=== PATIENT | male | born 1965 | race African-American/Black ===

== ENCOUNTER 2020-06-28 22:47 | Emergency (ER) | payer OTHER ==
[~2020-06-28] VITALS: Ht 180.3 cm; Wt 77.6 kg
[~2020-06-28 22:47] MED LIST: DIVA250T4 PO; GLYB1.253 PO; METF-440 PO; OLAN10TA3 PO; SERT25TA PO; SIMV10TA98 PO
--- NOTE | 2020-06-28 23:00 | NUR ---
PT CAME TO THE ED C/O HAVING SERIOUS MENTAL BREAKDOWN. PT STATES " I WANT TO GET ADMITTED AT A PSYCHIATRIC HOSPITAL. PT DENIES SI/HI. PT CHANGED INTO GOWN, BELONGINGS PLACED TO LOCKER, AND SAFETY PRECAUTIONS IMPLEMENTED. SITTER AT BEDSIDE FOR CONSTANT OBSERVATION
--- NOTE | 2020-06-28 23:14 | NUR ---
URINE COLLECTED AND SENT TO LAB
[2020-06-28 23:28] LABS: BASOPHILS # (AUTO) 0.1 /CMM (0.0-0.2); BASOPHILS % (AUTO) 0.6 % (0.0-2.0); EOSINOPHILS % (AUTO) 1.7 % (0.0-6.0); HEMATOCRIT 38 % (39-51); HEMOGLOBIN 13.4 g/dL (13.5-17.5); LYMPHOCYTES # (AUTO) 4.3 /CMM (0.8-4.8); LYMPHOCYTES % (AUTO) 40.3 % (20.0-44.0); MEAN CORPUSCULAR HGB CONC 35 g/dl (31.0-36.0); MEAN CORPUSCULAR VOLUME 88 fL (80-96); MONOCYTES # (AUTO) 0.9 /CMM (0.1-1.30); MONOCYTES % (AUTO) 7.9 % (2.0-12.0); NEUTROPHILS # (AUTO) 5.3 /CMM (1.8-8.9); NEUTROPHILS % (AUTO) 49.5 % (43.0-81.0); PLATELET COUNT (AUTO) 281 /CMM (150-450); RED BLOOD CELL COUNT(AUTO) 4.34 MIL/uL (4.5-6.0); WHITE BLOOD COUNT (AUTO) 10.7 K/uL (4.3-11.0)
[2020-06-28 23:32] LABS: APPEARANCE,URINE Clear (CLEAR); BILIRUBIN,URINE Negative (NEGATIVE); BLOOD, URINE Negative Ery/uL (NEGATIVE); COLOR,URINE Yellow (YELLOW); KETONES,URINE Negative (NEGATIVE); LEUKOCYTE ESTERASE ,URINE Negative (NEGATIVE); NITRITE, URINE Negative (NEGATIVE); PROTEIN,URINE Negative (NEGATIVE); UGLUCOSE Negative (NEGATIVE); UROBILINOGEN,URINE 0.2 EU/dL (0.2)
[2020-06-28 23:42] LABS: ALANINE AMINOTRANSFERASE 32 U/L (12-78); ALBUMIN 3.9 g/dL (3.4-5.0); ALCOHOL, BLOOD < 3 mg/dL (0-0); ALKALINE PHOSPHATASE 70 U/L (46-116); ASPARTATE AMINOTRANSFERASE 43 U/L (15-37); BILIRUBIN,DIRECT 0.1 mg/dL (0.0-0.2); BILIRUBIN,TOTAL 0.3 mg/dL (0.2-1.0); CALCIUM, SERUM 9.5 mg/dL (8.5-10.1); CARBON DIOXIDE 29 mmol/L (21-32); CHLORIDE 102 mmol/L (98-107); CREATININE 1.1 mg/dL (0.6-1.3); GLUCOSE 86 mg/dL (74-106); POTASSIUM 4.3 mmol/L (3.5-5.1); SODIUM SERUM 137 mmol/L (136-145); UREA NITROGEN, BLOOD 19 mg/dL (7-18)
[2020-06-28 23:54] LABS: VALPROIC ACID 17 ug/mL (50-100)
[2020-06-28] MEDS ORDERED: OLANZAPINE 5 MG TABLET ONE (23:56)
[2020-06-28 23:57] LABS: ACETAMINOPHEN < 2 ug/ml (10-30); SALICYLATE 0.8 mg/dL (2.8-20.0)
[2020-06-29] MEDS: OLANZAPINE 5 MG TABLET PO ONE (00:04)
--- NOTE | 2020-06-29 00:39 | NUR ---
COVID NEGATIVE PER LAB
--- NOTE | 2020-06-29 02:55 | NUR ---
PT RESTING COMFORTABLY IN BED. VSS. NO ACUTE DISTRESS NOTED. SITTER AT BEDSIDE FOR SAFETY
--- NOTE | 2020-06-29 03:30 | NUR ---
PER SOCAL INTAKE, UNABLE TO ACCEPT PT DUE TO INSURANCE.
--- NOTE | 2020-06-29 03:31 | NUR ---
CALLED MARYANN TANNER. LEFT MESSAGE TO RETURN CALL
--- NOTE | 2020-06-29 03:42 | NUR ---
CALLED [facility], UNABLE TO ACCEPT PT'S INSURANCE
--- NOTE | 2020-06-29 06:16 | NUR ---
Catina sigala in [facility] - 06/29/20 at 0713 by LINDA Patient is able to ambulate with a steady gait and is a/o x 4 and able to make needs known. patient wheeled out of the hosptial to waiting room for social service help.
--- NOTE | 2020-06-29 11:23 | NUR ---
Patient given written and verbal discharge instructions. Patient verbalizes understanding of instructions. Patient is ambulatory with steady gait. Refuses offer of alf placement. Patient given list of available shelters in surrounding area.
[2020-06-29 11:25] VITALS: BP 131/88
--- NOTE | 2020-06-29 11:44 | NUR ---
SW Consult: foreign exchange services manager consult requested by regarding pt seeking voluntary psychiatric hospitalization. Per MD notes, pt is a 55-year-old male with auditory hallucinations which are causing him distress although he denies suicidal or homicidal ideation and was previously treated with Depakote and Zyprexa but his doctor stopped the Zyprexa. He does not state that the hallucinations are commanding him to do things but he does state that they are scaring him. He wishes to be voluntarily admitted to a local psychiatric hospital for management and evaluation by a psychiatrist. He has no medical complaints at this time and states that he recently had 2- COVID test but the last one was a week ago. He states he has been tested for hepatitis and HIV and both were negative. CUSTOMER ACCOUNT MANAGER conducted chart review and met with the pt bedside in ED. CUSTOMER ACCOUNT MANAGER introduced self and purpose of the visit. Pt is alert and oriented x 4. Pt displays disorganized thought process and jumps from one topic to another, mumbling at times. Pt has [facility] insurance and is requesting his insurance be transferred to [facility]. CUSTOMER ACCOUNT MANAGER explained the transfer process to the pt and informed him he will need to call [facility] [place] to initiate the transfer. Pt got upset and began yelling stating it can be done as we speak. CUSTOMER ACCOUNT MANAGER continued to inform the pt of the process. Pt has a psychiatric diagnosis of Manic Depression. Pt denies suicidal and homicidal ideations at this time. Pt reports to have auditory hallucinations telling him he is "stupid". Pt also reports to having mood swings. Pt takes Zyprexa and Depakote. CUSTOMER ACCOUNT MANAGER encouraged pt to go to [facility] for ongoing psychiatric medication management. Pt receives $943 per month in SSI benefits. Pt denies substance use/ and or abuse at this time. CUSTOMER ACCOUNT MANAGER provided active listening, emotional support, validation of feelings and positive coping skills. CUSTOMER ACCOUNT MANAGER provided pt with Homeless resources related to Covid-19 which include food, hygiene, emergency shelters etc. foreign exchange services manager is available for support as needed. Pt was provided with shoes, meal, water and TAP card. Homeless patient waiver form was signed by the pt and placed in pt's chart. MD and RN notified of pt's discharge disposition.
== END 2020-06-29 12:00 | disposition home or self-care (01) ==
LOC: ER 22:49
DX: R44.0 Auditory hallucinations (principal); F41.9 Anxiety disorder, unspecified; E11.9 Type 2 diabetes mellitus without complications; Z79.84 Long term (current) use of oral hypoglycemic drugs; Z20.828 Contact with and (suspected) exposure to other viral communicable diseases; Z79.899 Other long term (current) drug therapy
CPT/HCPCS: 36415; 80048; 80076; 80164; 80305; 80307; 80329; 81001; 85025; 87426; 99285; G0480; 81000-TC

== ENCOUNTER 2020-07-03 10:55 | Emergency (ER) | payer OTHER ==
[~2020-07-03] VITALS: Ht 182.9 cm; Wt 78.0 kg
[2020-07-03 11:03] VITALS: BP 150/80
--- NOTE | 2020-07-03 11:18 | NUR ---
DR ANDREW AT BEDSIDE FOR EVAL.
[2020-07-03] MEDS ORDERED: NAPROXEN 250 MG TABLET ONE (11:24)
[2020-07-03] MEDS ORDERED: NAPROXEN 250 MG TABLET PO ONE (11:30)
--- NOTE | 2020-07-03 11:30 | NUR ---
PROVIDED W/ MEAL TRAY.
--- NOTE | 2020-07-03 12:19 | NUR ---
PT IS AGITATED, REFUSING TO LEAVE ED. STATES STILL HAVING L LEG PAIN. WAS MEDICATED. PROVIDED W/ MEAL. WANTS TO STAY OVERNIGHT AT ED. PROVIDED W/ HOMELESS RESOURCES AND TAP CARD. MEDICALLY CLEARED. ESCORTED BY SECURITY.
== END 2020-07-03 12:23 | disposition home or self-care (01) ==
LOC: ER 10:55
DX: R60.0 Localized edema (principal); E11.42 Type 2 diabetes mellitus with diabetic polyneuropathy; I10 Essential (primary) hypertension; Z79.899 Other long term (current) drug therapy; Z79.84 Long term (current) use of oral hypoglycemic drugs

== ENCOUNTER 2020-07-04 04:42 | Emergency (ER) | payer OTHER ==
[~2020-07-04] VITALS: Ht 175.3 cm; Wt 65.8 kg
[2020-07-04 05:04] VITALS: BP 111/79
--- NOTE | 2020-07-04 05:15 | NUR ---
DR LAUREN AT BEDSIDE
--- NOTE | 2020-07-04 05:28 | NUR ---
PT REFUSED TO SIGN DC PAPERS. PT AMBULATORY W/ STEADY GAIT.
== END 2020-07-04 05:54 | disposition home or self-care (01) ==
LOC: ER 04:42
DX: S80.862A Insect bite (nonvenomous), left lower leg, initial encounter (principal); S80.861A Insect bite (nonvenomous), right lower leg, initial encounter; R60.0 Localized edema; G89.29 Other chronic pain; E11.9 Type 2 diabetes mellitus without complications; I10 Essential (primary) hypertension; Z76.5 Malingerer [conscious simulation]; Z59.0 Homelessness; Z79.899 Other long term (current) drug therapy; W57.XXXA Bitten or stung by nonvenomous insect and other nonvenomous arthropods, initial encounter; Y93.89 Activity, other specified; Y92.89 Other specified places as the place of occurrence of the external cause; Y99.8 Other external cause status